=== PATIENT | female | born 1955 | race Caucasian/White ===

== ENCOUNTER 2017-06-27 19:29 | Emergency (ER) | payer OTHER ==
[~2017-06-27] VITALS: Ht 172.7 cm; Wt 100.0 kg
[~2017-06-27 19:29] MED LIST: ASPI1TAB57 PO; CALC500T37 PO; COENZYME Q10; EPIP0.3I IM; LACTCAP8 PO; LISI20TA PO; MELO7.5T27 PO; MULTTAB67 PO; SLOWTAB PO; TH GCAP PO; [UNRECOGNIZED DRUG - CODE]; [UNRECOGNIZED DRUG - OTHER]; [UNRECOGNIZED DRUG - OTHER]; [UNRECOGNIZED DRUG - OTHER]; [UNRECOGNIZED DRUG - SUPPLY]; calcium; vitamin D3
[2017-06-27 19:52] VITALS: BP 183/84; PULSE 69; RESP 18; TEMP 98.4; O2SAT 98
[2017-06-27] MEDS ORDERED: ACETAMINOPHEN 325 MG TAB PO ONE (21:00)
[2017-06-27] MEDS ORDERED: TETANUS/DIPHTHERIA TOXOID ADULT 0.5 ML VIAL IM ONE (21:00)
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
[2017-06-27 22:52] VITALS: BP 129/62; PULSE 65; RESP 18; O2SAT 95
== END 2017-06-27 23:30 | disposition home or self-care (01) ==
LOC: NEPC 19:29
DX: S09.90XA Unspecified injury of head, initial encounter (principal); S63.91XA Sprain of unspecified part of right wrist and hand, initial encounter; S00.83XA Contusion of other part of head, initial encounter; V19.88XA Pedal cyclist (driver) (passenger) injured in other specified transport accidents, initial encounter; Y93.55 Activity, bike riding; R73.03 Prediabetes; M19.90 Unspecified osteoarthritis, unspecified site; Z23 Encounter for immunization
CPT/HCPCS: 70450; 70486; 72125; 73130; 73564; 73630; 90471; 90714